=== PATIENT | female | born 2005 | race Caucasian/White ===

== ENCOUNTER 2024-03-23 10:21 | Emergency (ER) | payer OTHER, SELFPAY ==
--- NOTE | ~2024-03-23 | CT_ITS ---
CT brain wo con Ordering provider: Brian Santamaria MD History: 18 years Female with . headache . Comparison: None. Technique: CT of the head without contrast. Radiation Reduction technique utilized.The dose-length product was 605.33 mGy-cm. FINDINGS: BRAIN PARENCHYMA AND CSF SPACES: No midline shift, mass effect or hemorrhage. The brain parenchyma a nd CSF spaces are otherwise normal. VISUALIZED PARANASAL SINUSES: Well aerated. MASTOIDS: Well aerated. BONES: The bones appear intact. SOFT TISSUES: Visualized nasopharynx is normal. Superficial soft tissues are normal. IMPRESSION: No acute intracranial findings. Reviewed, dictated and finalized at location A. [facility] [employer]
[2024-03-23 10:25] VITALS: BP 102/68; PULSE 86; RESP 16; TEMP 36.4; O2SAT 99
--- NOTE | 2024-03-23 12:47 | ED.GENADULT ---
HPI - General Adult General Chief complaint: Headache Stated complaint: diff sized pupils, headache, vomitting Time Seen by Provider: 03/23/24 11:52 History of Present Illness HPI narrative: 18-year-old female presenting to the emergency department for evaluation for headache that was different than her previous migraines. Patient states he has only daily migraines. Patient also noticed that her pupils were different sizes. Patient did not have her glasses on at that time and states he is unable to tell if she had any patient changes. Patient states that the headache is resolved and patient has no current vision changes. Patient's pupils are back to normal sizes. Patient states she primarily came in because her family was concerned and strongly encouraged to be evaluated. Related Data Allergies Allergy/AdvReac Type Severity Reaction Status Date / Time No Known Allergies Allergy Verified 03/23/24 10:23 Review of Systems Review of Systems: All systems reviewed & are unremarkable except as noted in HPI and below Exam Narrative: APPEARANCE: Well appearing, no pain, no distress, well-nourished. HEAD: normocephalic, atraumatic. EYES: PERRLA/EOMI, conjunctivae clear. NOSE: Normal no drainage EARS:TMS clear with good light reflex. Pupils are equal size and reactive THROAT: Pharynx clear, no exudate. NECK: Supple. No adenopathy, no masses. RESPIRATORY: Airway patent, respirations nonlabored. Clear to auscultation bilaterally, no rales, rhonchi, wheezing. CARDIOVASCULAR: Regular rate and rhythm without murmurs rubs or gallops. ABDOMINAL: Soft, nontender, nondistended, normal bowel sounds MUSCULOSKELETAL: Moves all extremities. Strength/ROM intact, No edema, No calf tenderness. NEURO: Alert. Cranial nerves II through XII intact. Grossly intact. Negative Romberg, normal pupil sizes, normal forward and backward tandem gait, normal heel stand and toe stand Course Vital Signs Vital signs: Vital Signs Temperature 97.6 F 03/23/24 10:25 Pulse Rate 86 03/23/24 10:25 Respiratory Rate 16 03/23/24 10:25 Blood Pressure 102/68 03/23/24 10:25 Pulse Oximetry 99 03/23/24 10:25 Oxygen Delivery Room Air 03/23/24 10:25 Temperature 97.6 F 03/23/24 10:25 Pulse Rate 86 11/20/24 10:25 Respiratory Rate 16 03/23/24 10:25 Blood Pressure 102/68 03/23/24 10:25 Pulse Oximetry 99 03/23/24 10:25 Oxygen Delivery Room Air 03/23/24 10:25 Medical Decision Making MDM Narrative Medical decision making narrative: 18-year-old female presenting to the emergency department for evaluation for headache and a nickel pupils last night. She states that her headache is significantly improved and patient had and has no vision changes and patient does have equal pupils. CT scan showed no acute intracranial abnormality. Patient was offered medications for pain control but declined. Unsure of the underlying etiology with asymmetric pupils but even headache or unequal lighting could have caused this temporary finding. Differential Diagnosis Differential Diagnosis: TIA, CVA, subdural hematoma, subarachnoid hemorrhage, migraine Vital Signs Vital Signs: Vital Signs Temperature 97.6 F 03/23/24 10:25 Pulse Rate 86 03/23/24 10:25 Respiratory Rate 16 03/23/24 10:25 Blood Pressure 102/68 03/23/24 10:25 Pulse Oximetry 99 03/23/24 10:25 Oxygen Delivery Room Air 03/23/24 10:25 Temperature 97.6 F 03/23/24 10:25 Pulse Rate 86 03/23/24 10:25 Respiratory Rate 16 03/23/24 10:25 Blood Pressure 102/68 03/23/24 10:25 Pulse Oximetry 99 03/23/24 10:25 Oxygen Delivery Room Air 03/23/24 10:25 Imaging Data Radiologist's impression: Impressions Head CT 03/23/24 12:14 IMPRESSION: No acute intracranial findings. Discharge Plan Discharge Clinical Impression: Headache, Abnormal size of pupil Patient Disposition: Home, Self-Care Condition: Stable Instructions: Antibiotic Form Additional Instructions: Have close follow-up with your primary care physician. I do recommend following up with a headache clinic. If you have any worsening symptoms please call or return to the emergency department Follow-up/Referrals: Montrell,MD Luis [Primary Care Provider] -
== END 2024-03-23 12:58 | disposition home or self-care (01) ==
PROVIDERS: Emergency Provider Emergency Medicine; PCP Internal Medicine
DX: R51.9 Headache, unspecified (principal); H57.9 Unspecified disorder of eye and adnexa
CPT/HCPCS: 70450; 99284